=== PATIENT | female | born 1960 | race African-American/Black ===

== ENCOUNTER 2023-10-21 09:54 | Emergency (ER) | payer SELFPAY ==
[~2023-10-21] VITALS: Ht 154.9 cm; Wt 72.4 kg
[~2023-10-21 09:54] MED LIST: PRO AIR
[2023-10-21 09:58] VITALS: O2SAT 97
[2023-10-21 10:30] VITALS: BP 149/86; PULSE 77; RESP 16; TEMP 98
[2023-10-21] MEDS ORDERED: D-ME473S50 PO (10:37)
[2023-10-21] MEDS ORDERED: PSEU30CA2 PO (10:37)
== END 2023-10-21 11:03 | disposition home or self-care (01) ==
LOC: ER 09:54
DX: J06.9 Acute upper respiratory infection, unspecified (principal); J44.9 Chronic obstructive pulmonary disease, unspecified; E11.9 Type 2 diabetes mellitus without complications; I10 Essential (primary) hypertension; Z98.890 Other specified postprocedural states; Z88.0 Allergy status to penicillin; Z88.8 Allergy status to other drugs, medicaments and biological substances
CPT/HCPCS: 99283

== ENCOUNTER 2025-02-17 19:20 | Emergency (ER) | payer MEDICARE ==
[~2025-02-17] VITALS: Ht 154.9 cm; Wt 72.2 kg
[~2025-02-17 19:20] MED LIST changes: +D-ME473S50 PO; +PSEU30CA2 PO
[2025-02-17 19:45] VITALS: O2SAT 99
[2025-02-17] MEDS: DEXAMETHASONE 10 MG/ML VIAL PO ONE (23:42)
[2025-02-18] MEDS ORDERED: TC1C15 TP (00:01)
[2025-02-18] MEDS ORDERED: DIPH25CA83 MT (00:01)
[2025-02-18 00:12] VITALS: BP 165/85; PULSE 77; RESP 18; TEMP 36.4; O2SAT 99
== END 2025-02-18 00:13 | disposition home or self-care (01) ==
LOC: ER 19:20
DX: S80.861A Insect bite (nonvenomous), right lower leg, initial encounter (principal); S80.862A Insect bite (nonvenomous), left lower leg, initial encounter; R21 Rash and other nonspecific skin eruption; J44.9 Chronic obstructive pulmonary disease, unspecified; E11.9 Type 2 diabetes mellitus without complications; I10 Essential (primary) hypertension; Z79.899 Other long term (current) drug therapy; Z98.890 Other specified postprocedural states; Z88.8 Allergy status to other drugs, medicaments and biological substances; Z88.0 Allergy status to penicillin; Z79.52 Long term (current) use of systemic steroids; W57.XXXA Bitten or stung by nonvenomous insect and other nonvenomous arthropods, initial encounter; Y93.89 Activity, other specified; Y92.89 Other specified places as the place of occurrence of the external cause; Y99.8 Other external cause status
CPT/HCPCS: 99283; J1100

== ENCOUNTER 2025-04-30 18:26 | Inpatient (IN) | payer MEDICARE ==
[~2025-04-30] VITALS: Ht 160 cm; Wt 72.6 kg
[~2025-04-30 18:26] MED LIST changes: +DIPH25CA83 MT; +TC1C15 TP
[2025-04-30 20:00] LABS: BASOPHILS % 0.7 % (0.0-2.0); EOSINOPHILS % 5.5 % (0.0-5.0); HEMATOCRIT. 43.0 % (36.0-48.0); HEMOGLOBIN. 13.9 g/dL (12.0-16.0); LYMPHOCYTES % 18.3 % (20.0-50.0); MEAN PLATELET VOLUME 8.7 fl (7.4-10.4); MONOCYTES % 10.0 % (2.0-8.0); NEUTROPHILS % 65.5 % (40.0-76.0); PLATELET 214 x1000/uL (130-400); RED BLOOD CELL COUNT 4.80 mill/uL (4.2-5.4); RED CELL DISTRIBUTION WIDTH 14.0 % (11.6-14.6)
[2025-04-30 20:06] LABS: INR 1.1
[2025-04-30 20:09] LABS: CREATININE 0.9 mg/dL (0.6-1.0); UREA NITROGEN BLOOD < 5 mg/dL (9-23)
[2025-04-30 20:10] LABS: TROPONIN I HIGH SENSITIVITY 11 ng/L (3.0-34)
[2025-04-30 20:11] LABS: ASPARTATE AMINOTRANSFERASE 16 IU/L (<34); BILIRUBIN DIRECT < 0.1 mg/dL (<=3.0); BILIRUBIN TOTAL 0.2 mg/dL (0.1-1.0); PROTEIN TOTAL 6.5 g/dL (6.0-8.3)
[2025-04-30] MEDS: IPRATROPIUM BROMIDE (0.02%) 0.5MG/2.5ML NEB HHN SCH (20:54)
[2025-04-30] MEDS: ALBUTEROL (0.083%) 2.5MG/3ML NEB HHN SCH (20:54)
[2025-04-30 20:55] VITALS: PULSE 100; RESP 20; O2SAT 100
[2025-04-30] MEDS: METHYLPREDNISOLONE SOD SUCC 125MG/2ML (ACT-O-VIAL) IV ONE (21:04)
[2025-04-30 23:45] LABS: TROPONIN I HIGH SENSITIVITY 10 ng/L (3.0-34)
[2025-05-01] VITALS (11 sets, daily range): BP systolic 113–150; BP diastolic 66–81; PULSE 78–117; RESP 16–21; TEMP 36.3–36.7; O2SAT 93–99
[2025-05-01] MEDS ORDERED: CLONIDINE 0.1MG TABLET PO PRN (01:00)
[2025-05-01] MEDS ORDERED: ZOLPIDEM TARTRATE 5MG TABLET PO PRN (01:00)
[2025-05-01] MEDS ORDERED: ONDANSETRON HCL 4MG/2ML INJ IV PRN (01:00)
[2025-05-01] MEDS ORDERED: HYDROCODONE/ACETAMINOPHEN 5/325MG TABLET PO PRN (01:00)
[2025-05-01] MEDS ORDERED: MAGNESIUM/ALUMINUM HYDROXIDE/SIMETHICONE 30ML UDC PO PRN (01:00)
[2025-05-01] MEDS ORDERED: ACETAMINOPHEN 325MG TABLET PO PRN ×2 (01:00→16:15)
[2025-05-01] MEDS ORDERED: DEXTROSE 50% WATER 50ML SYRINGE IV PRN (01:15)
[2025-05-01] MEDS: LEVOFLOXACIN 750MG PREMIX 150 ML IV SCH (03:00)
[2025-05-01] MEDS: GUAIFENESIN/CODEINE 200-20MG/10ML UDC PO PRN (03:57)
[2025-05-01] MEDS: METHYLPREDNISOLONE SOD SUCC 40MG/ML (ACT-O-VIAL) IV SCH (05:17)
[2025-05-01] MEDS: IPRATROPIUM/ALBUTEROL 0.5-3(2.5)MG/3ML NEB NEB SCH (05:31)
[2025-05-01] MEDS: BLOOD SUGAR DIAGNOSTIC STRIP TEST SCH (05:59)
[2025-05-01] MEDS: INSULIN LISPRO 100 UNITS/ML SUBCUT SCH (06:37)
[2025-05-01] MEDS: ENOXAPARIN 40MG/0.4ML SYR SUBCUT SCH (08:30)
[2025-05-01] MEDS: PANTOPRAZOLE SODIUM 40 MG/VIAL IV SCH (08:30)
[2025-05-01 10:23] LABS: TROPONIN I HIGH SENSITIVITY 7 ng/L (3.0-34)
[2025-05-01] MEDS: BENZONATATE 100MG CAPSULE PO SCH (13:04)
[2025-05-01] MEDS ORDERED: METF-414 MT (14:56)
[2025-05-01] MEDS ORDERED: IPRATROPIUM/ALBUTEROL 0.5-3(2.5)MG/3ML NEB HHN PRN (15:30)
[2025-05-01] MEDS ORDERED: IPRA3AMP9 HHN (15:31)
[2025-05-01] MEDS ORDERED: ALBU90AE INH (15:31)
[2025-05-01] MEDS ORDERED: BUDE6.9H INH (15:31)
[2025-05-01] MEDS: IBUPROFEN 800MG TABLET PO PRN (17:11)
[2025-05-01 18:42] LABS: TROPONIN I HIGH SENSITIVITY 8 ng/L (3.0-34)
[2025-05-02] VITALS (9 sets, daily range): BP systolic 122–155; BP diastolic 57–85; PULSE 82–105; RESP 16–18; TEMP 36.4–36.9; O2SAT 92–99
[2025-05-02 08:20] LABS: BASOPHILS % 0.2 % (0.0-2.0); EOSINOPHILS % 0.0 % (0.0-5.0); HEMATOCRIT. 40.5 % (36.0-48.0); HEMOGLOBIN. 13.0 g/dL (12.0-16.0); LYMPHOCYTES % 8.0 % (20.0-50.0); MEAN PLATELET VOLUME 8.9 fl (7.4-10.4); MONOCYTES % 3.1 % (2.0-8.0); NEUTROPHILS % 88.7 % (40.0-76.0); PLATELET 218 x1000/uL (130-400); RED BLOOD CELL COUNT 4.51 mill/uL (4.2-5.4); RED CELL DISTRIBUTION WIDTH 14.0 % (11.6-14.6)
[2025-05-02 08:32] LABS: CREATININE 0.9 mg/dL (0.6-1.0)
[2025-05-02 08:36] LABS: UREA NITROGEN BLOOD 10 mg/dL (9-23)
[2025-05-02 09:38] LABS: *AMPHETAMINES SCREEN URINE NEGATIVE (NEGATIVE); *BARBITURATES SCREEN URINE NEGATIVE (NEGATIVE); *BENZODIAZEPINES SCREEN URINE NEGATIVE (NEGATIVE); *COCAINE SCREEN URINE NEGATIVE (NEGATIVE); METHADONE URINE SCREEN NEGATIVE (NEGATIVE); OPIATES URINE SCREEN PRESUMPTIVE POSITIVE (NEGATIVE); PHENCYCLIDINE URINE SCREEN NEGATIVE (NEGATIVE)
[2025-05-02 09:39] LABS: CANNABINOID URINE SCREEN NEGATIVE (NEGATIVE); ECSTASY MDMA SCREEN URINE NEGATIVE (NEGATIVE)
[2025-05-02] MEDS ORDERED: SODIUM CHLORIDE 45ML SPRAY NS PRN (16:00)
[2025-05-02] MEDS ORDERED: NALOXONE HCL 0.4MG/ML VIAL IV PRN (16:00)
[2025-05-02] MEDS: PREDNISONE 20MG TABLET PO SCH (17:08)
[2025-05-02] MEDS: MORPHINE SULFATE 2 MG/ML INJ (NOT FOR IM USE) IV PRN (21:22)
[2025-05-03] VITALS: BP 134/69; PULSE 103; RESP 17; TEMP 36.8; O2SAT 95
[2025-05-03 04:00] VITALS: BP 140/68; PULSE 111; RESP 16; TEMP 36.9; O2SAT 95
[2025-05-03 06:00] VITALS: PULSE 86; RESP 18; O2SAT 96
[2025-05-03 06:57] LABS: BASOPHILS % 0.0 % (0.0-2.0); EOSINOPHILS % 0.0 % (0.0-5.0); HEMATOCRIT. 39.2 % (36.0-48.0); HEMOGLOBIN. 12.7 g/dL (12.0-16.0); LYMPHOCYTES % 15.1 % (20.0-50.0); MEAN PLATELET VOLUME 9.0 fl (7.4-10.4); MONOCYTES % 4.6 % (2.0-8.0); NEUTROPHILS % 80.3 % (40.0-76.0); PLATELET 212 x1000/uL (130-400); RED BLOOD CELL COUNT 4.38 mill/uL (4.2-5.4); RED CELL DISTRIBUTION WIDTH 14.1 % (11.6-14.6)
[2025-05-03 07:47] LABS: CREATININE 0.7 mg/dL (0.6-1.0); UREA NITROGEN BLOOD 9 mg/dL (9-23)
[2025-05-03 08:00] VITALS: BP 158/79; PULSE 90; RESP 18; TEMP 36.4; O2SAT 99
[2025-05-03] MEDS: LEVOFLOXACIN 250MG TABLET PO SCH (08:19)
[2025-05-03 09:16] VITALS: PULSE 80; RESP 16; O2SAT 97
[2025-05-03] MEDS ORDERED: METF-414 MT (10:33)
[2025-05-03] MEDS ORDERED: METH4TAB95 MT (10:33)
[2025-05-03 10:57] VITALS: BP_SYST 154; BP_SYST 158; BP_DIAS 72; BP_DIAS 79; PULSE 90; RESP 18; TEMP 97.6
[2025-05-03] MEDS: INFLUENZA VACCINE 05/PF 0.5 ML SYRINGE IM ONE (11:32)
[2025-05-03] MEDS: PNEUMOCOCCAL 20-VAL CONJ-DIP CRM 0.5ML IM ONE (11:33)
== END 2025-05-03 12:04 | disposition home or self-care (01) | DRG 190 ==
LOC: ER 18:26 → EDBEDREQTM 23:16 → EDBEDREQ 23:16 → CANRESERV 23:30 → ENRESERV 23:30 → 5WST 05-01 00:07
PROVIDERS: ADMIT Internal Medicine; ATTEND Internal Medicine
DX: J44.1 Chronic obstructive pulmonary disease with (acute) exacerbation (principal); J96.00 Acute respiratory failure, unspecified whether with hypoxia or hypercapnia; E11.65 Type 2 diabetes mellitus with hyperglycemia; I10 Essential (primary) hypertension; Z20.822 Contact with and (suspected) exposure to COVID-19; F17.210 Nicotine dependence, cigarettes, uncomplicated; Z88.0 Allergy status to penicillin; Z88.6 Allergy status to analgesic agent; Z88.8 Allergy status to other drugs, medicaments and biological substances; Z79.899 Other long term (current) drug therapy
CPT/HCPCS: 36415; 71045; 80048; 80076; 80305; 82962; 83036; 83735; 83880; 84443; 84484; 85025; 87426; 90686; 90732; 93005; 94070; 94640; 94664; 98960; 99285; J1650; J1815; J1956; J2270; J2470; J2919; J7512